=== PATIENT | male | born 1950 | race Caucasian/White ===

== ENCOUNTER 2017-11-14 08:39 | Emergency (ER) | payer OTHER | END 2017-11-14 11:20 | disposition home or self-care (01) | LOC: FTE 08:39 | DX: J06.9 Acute upper respiratory infection, unspecified (principal); I10 Essential (primary) hypertension | CPT/HCPCS: 71045; 99284-25 ==

== ENCOUNTER 2018-12-13 06:17 | Emergency (ER) | payer OTHER | END 2018-12-13 07:56 | disposition home or self-care (01) | LOC: FTE 06:17 | DX: J04.0 Acute laryngitis (principal) | CPT/HCPCS: 99283 ==